=== PATIENT | female | born 1950 ===

== ENCOUNTER 2022-11-10 16:51 | Emergency (ER) | payer MEDICARE, MEDICAID, SELFPAY ==
[2022-11-10] VITALS (8 sets, daily range): BP systolic 110–173; BP diastolic 44–87; PULSE 71–90; RESP 14–20; TEMP 36.5; O2SAT 98–100
--- NOTE | ~2022-11-10 | CT_ITS ---
EXAMINATION: CT abdomen pelvis w con DATE: 11/10/2022 20:22 INDICATION: abd pain TECHNIQUE: Computed tomography (CT) of the abdomen and pelvis was performed with 100 mL Omnipaque-350 intravenous contrast. Automated exposure control and iterative reconstruction technique were employe d. The dose-length product was 1496.13 mGy-cm. COMPARISON: None. FINDINGS: Lower thorax: Bibasilar scar/atelectasis. Aortic valve and coronary artery calcification. Liver: Nodular liver border. Biliary/Gallbladder: Gallbladder is absent. No bile duct dilation. Pancreas: Moderate atrophy. Spleen: Normal. Adrenals:No mass. Kidneys: Bilateral subcentimeter hypodensities, too small to characterize but most likely represent c ysts. No suspicious mass, stone, or hydronephrosis. GI tract: Percutaneous enteric tube, balloon in the first portion of the duodenum. Mild inflammatory stranding along the tract. No small or large bowel dilation. Uncomplicated appearing 5.2 cm duodenal diverticulum. Appendix not visualized. Retained contrast in the colon. Mesentery/Peritoneum: No ascites, mass, or free air. Retroperitoneum: No mass. Pelvis: Normal uterus and ovaries. Distended urinary bladder, no wall thickening, intraluminal gas. Soft Tissues: Multiloculated infraumbilical ventral hernia containing mesenteric vessels and fat, wit h mild fluid and inflammatory change. Bones: No acute osseous finding. IMPRESSION: Likely changes of cirrhosis. Percutaneous enteric tube terminating in the first portion of the duodenum, with mild inflammatory ch ana lilia along the tract. Mildly inflamed infraumbilical ventral hernia containing mesenteric fat and vessels. Gas within the urinary bladder, correlate with history of recent instrumentation or catheterization. Reviewed, dictated and finalized at location K. IMPRESSION: Likely changes of cirrhosis. Percutaneous enteric tube terminating in the first portion of the duodenum, wit h mild inflammatory change along the tract. Mildly inflamed infraumbilical ventral hernia containing mesenteric fat and ves sels. Gas within the urinary bladder, correlate with history of recent instrumentatio n or catheterization.
--- NOTE | 2022-11-10 17:36 | ED.GENADULT ---
HPI - General Adult General Chief complaint: Unspecified <Renee Soares PA-C - Last Filed: 11/10/22 23:36> Stated complaint: ?blocked PEG <Renee Soares PA-C - Last Filed: 11/10/22 23:36> Time Seen by Provider: 11/10/22 17:09 <Renee Soares PA-C - Last Filed: 11/10/22 23:36> Source: patient and EMS <Renee Soares PA-C - Last Filed: 11/10/22 23:36> Mode of arrival: EMS <Renee Soares PA-C - Last Filed: 11/10/22 23:36> Limitations: other (Recent stroke with expressive aphasia) <Renee Soares PA-C - Last Filed: 11/10/22 23:36> History of Present Illness HPI narrative: This is a 72-year-old female that presents to the emergency department for abdominal pain. Reportedly patient recently had PEG tube placed. Today she was complaining of abdominal pain and her abdomen seemed distended. Reportedly they suctioned the area with improvement and distension. Also applied lidocaine to the area with improvement in pain. Reports some vomiting. Denies fevers. <Renee Soares PA-C - Last Filed: 11/10/22 23:36> Related Data Allergies/adverse reactions: Allergies Allergy/AdvReac Type Severity Reaction Status Date / Time lidocaine [From Xylocaine] Allergy Anaphylaxis Verified 11/08/22 15:15 Penicillins Allergy Difficulty Verified 11/08/22 15:14 Breathing <Renee Soares PA-C - Last Filed: 11/10/22 23:36> Review of Systems Review of Systems: CONSTITUTIONAL: Denies fever GASTROINTESTINAL: Reports abdominal pain, nausea, vomiting <Renee Soares PA-C - Last Filed: 11/10/22 23:36> All systems reviewed & are unremarkable except as noted in HPI and below <Renee Soares PA-C - Last Filed: 11/10/22 23:36> [facility] Past Medical History Medical History: Medical History (Updated 11/10/22 @ 21:55 by Renee Soares PA-C) COPD (chronic obstructive pulmonary disease) Diabetes mellitus GERD (gastroesophageal reflux disease) Hemorrhagic stroke Hypertension Hypothyroidism Oropharyngeal dysphagia MIRNA (obstructive sleep apnea) Right hemiparesis <Renee Soares PA-C - Last Filed: 11/10/22 23:36> Family History Family History: Family History Mother Lung cancer Father Testicular cancer <Renee Soares PA-C - Last Filed: 11/10/22 23:36> Social History Social History: Social History Smoking status: Former smoker Tobacco type: cigarettes Second hand tobacco smoke exposure: No Smoking end date: 11/08/22 Additional smoking assessment comments: 1 pack a day from [id number] Alcohol intake: never Substance use: never Substance use type: does not use Spiritual care concerns: No <MAVIS Hill Last Filed: 11/10/22 23:36> Exam Narrative: GENERAL: Well-appearing, well-nourished, and in no acute distress. HEAD: Normocephalic, atraumatic. EYES: EOMI. CHEST: Clear to auscultation. No respiratory distress. No wheezes rales or rhonchi HEART: Regular rate and rhythm. No murmur heard. Normal peripheral pulses. ABDOMEN: Soft, nondistended, normal active bowel sounds. Mild tenderness to palpation throughout the abdomen, without guarding. PEG tube in place in the mid upper abdomen without surrounding erythema or abnormal discharge EXTREMITIES: Normal range of motion. No edema. SKIN: Warm, dry, no rash. NEURO: Alert and oriented x3. PSYCH: Normal mood and affect <Renee Soares PA-C - Last Filed: 11/10/22 23:36> Course Course Emergency Course: Patient was updated on workup and agrees with plan of care <Renee Soares PA-C - Last Filed: 11/10/22 23:36> [employer]/PA Physician Supervision This is a was performed by both a physician and an APC. I performed all aspects of the MDM as documented w/ the following additions: 72-year-old female presenting ED for abdominal pain and distention after recen
[2022-11-10 18:16] LABS: Basophils Absolute Auto 0.1 K/mm3 (0.0-0.1); Basophils Percent Auto 0.7 % (0.2-1.2); Eosinophils Absolute Auto 0.3 K/mm3 (0-0.3); Eosinophils Percent Auto 3.3 % (0-4.4); Immature Granulocyte Absolute 0.04 K/mm3 (0.00-0.031); Immature Granulocyte Percent A 0.4 % (0-0.5); Lymphocytes Absolute Auto 1.08 K/mm3 (0.9-3.2); Lymphocytes Percent Auto 10.4 % (18.3-44.2); Mean Corpuscular HGB Conc 32.4 g/dl (32-36); Mean Corpuscular Hemoglobin 29.2 pg (26-34); Mean Corpuscular Volume 90.2 fl (80-100); Mean Platelet Volume 11.1 fl (7.4-10.4); Monocytes Absolute Auto 0.9 K/mm3 (0.1-0.6); Monocytes Percent Auto 8.7 % (2.6-8.5); Neutrophils Absolute Auto 7.9 K/mm3 (1.3-6.7); Neutrophils Percent Auto 76.5 % (45.5-73.1); Platelet Count Result 300 k/mm3 (150-375); Red Blood Count 3.77 M/mm3 (4.2-5.4); Red Cell Distribution Width 17.1 % (11.5-14.5); White Blood Count 10.4 K/mm3 (4.5-10.0)
[2022-11-10 18:37] LABS: Alanine Aminotransferase 26 U/L (6-35); Alkaline Phosphatase 97 U/L (38-126); Anion Gap 8 mmol/L (8-16); Aspartate Amino Transferase 26 U/L (14-36); Bilirubin,Total 0.8 mg/dL (0.2-1.3); Blood Urea Nitrogen 54 mg/dL (7-17); Calcium 10.1 mg/dL (8.4-10.2); Carbon Dioxide 32 mmol/L (22-30); Chloride 97 mmol/L (98-107); Estimated CRCL calculation 62 ml/min; Estimated Glomerular Filt Rate > 60; Glucose 227 mg/dL (65-110); Lipase 159 U/L (23-300); Potassium 5.2 mmol/L (3.4-5.0); Sodium 137 mmol/L (137-145)
--- NOTE | 2022-11-10 18:56 | PC.NURSE ---
multiple attempts to call daughter, no answer. Pt refusing SLN and UA until daughter arrives
[2022-11-10] MEDS: MORPHINE SULFATE (*CRX) 4 MG/ML INJ IV PUSH (19:57)
[2022-11-10] MEDS: ONDANSETRON INJ 4 MG/2 ML VIAL IV PUSH (19:57)
[2022-11-10] MEDS: SODIUM CHLORIDE 0.9% IV 500 ML 999 ML IV CONT (19:58)
[2022-11-10 21:26] LABS: Appearance Urine Turbid (Clear); Bacteria Urine 4+ /hpf; Bilirubin Urine Negative (Negative); Blood Urine 2+ (Negative); Color Urine Yellow (Yellow); Glucose Urine UA Negative (Negative); Ketones Urine Negative (Negative); Leukocyte Esterase Ur 3+ LEU/UL (Negative); Need Manual Microscopic Reviewed; Nitrate Urine Negative (Negative); Protein Urine 1+ mg/dL (Negative); RBC Urine 51-100 /hpf (0-2); Squamous Epithelial Cell Urine Moderate /hpf (Few); WBC Urine >100 /hpf
[2022-11-10 21:27] LABS: Add Urine Microscopic? YES
--- NOTE | 2022-11-10 21:55 | ECG_ITS ---
Measurements Intervals [place] Rate: 79 P: 0 NH: 149 QRS: 22 QRSD: 95 T: 35 QT: 383 QTc: 441 Interpretive Statements SINUS RHYTHM NORMAL ECG NO PREVIOUS ECG AVAILABLE FOR COMPARISON Electronically Signed On 11-11-2022 12:39:30 CDT by Artem Zamarripa M.D.
[2022-11-11 01:30] VITALS: BP 139/88; PULSE 100; RESP 13; O2SAT 100
--- NOTE | 2022-11-11 01:44 | PC.NURSE ---
Call [facility] at [phone] to cancel transport.
== END 2022-11-11 02:00 ==
PROVIDERS: Emergency Provider Physician Assistant
DX: N39.0 Urinary tract infection, site not specified (principal); E87.5 Hyperkalemia; R10.9 Unspecified abdominal pain; E11.9 Type 2 diabetes mellitus without complications; J44.9 Chronic obstructive pulmonary disease, unspecified; I10 Essential (primary) hypertension; E03.9 Hypothyroidism, unspecified; Z87.891 Personal history of nicotine dependence
CPT/HCPCS: 36415; 74177; 80053; 81001; 83690; 85025; 87077; 87086; 87186; 93005; 96361; 96365; 96375; 99284; J0696; J2270; J2405; J7040; Q9967